=== PATIENT | female | born 1970 | race Caucasian/White ===

== ENCOUNTER 2017-09-13 00:57 | Inpatient (IN) | payer OTHER ==
[2017-09-13] MEDS ORDERED: ACETAMINOPHEN 325 MG TAB PO (02:00)
[2017-09-13] MEDS ORDERED: DOCUSATE SODIUM 100 MG CAP PO ×2 (02:00→12:00)
[2017-09-13] MEDS ORDERED: NACL 0.9% 3 ML SYG IV (02:00)
[2017-09-13] MEDS: HYDROmorphONE 0.5 MG/0.5 ML SYG IV ×3 (02:27→10:37)
[2017-09-13] MEDS: SOD CHLORIDE 0.9% 1,000 ML IV ×3 (02:27→15:59)
[2017-09-13] MEDS: TAMSULOSIN (SR) 0.4 MG CAP PO ×3 (02:27→20:30)
[2017-09-13 02:43] LABS: ADD MAN DIFF? NO
[2017-09-13 02:54] LABS: WHITE BLOOD COUNT 10.6 10^3/ul (4.8-10.8)
[2017-09-13 02:54] LABS: BASOPHIL # 0.1 10^3/ul (0.0-0.1); EOSINOPHILS # 0.5 10^3/ul (0.0-0.5); EOSINOPHILS % 4.3 % (0.0-7.0); HEMATOCRIT 37.3 % (37.0-47.0); HEMOGLOBIN 12.2 g/dl (12.0-16.0); LYMPHOCYTES # 4.9 10^3/ul (0.8-2.9); LYMPHOCYTES % 46.1 % (15.0-51.0); MEAN CORPUSCULAR HEMOGLOBIN 32.7 pg (29.0-33.0); MEAN CORPUSCULAR HGB CONC 32.7 g/dl (32.0-37.0); MEAN PLATELET VOLUME 9.4 fl (7.4-10.4); MONOCYTE # 0.9 10^3/ul (0.3-0.9); MONOCYTES % 8.3 % (0.0-11.0); NEUTROPHIL # 4.2 10^3/ul (1.6-7.5); PLATELET COUNT 445 10^3/UL (140-415); RED BLOOD COUNT 3.73 10^6/ul (4.20-5.40); RED CELL DISTRIBUTION WIDTH 15.6 % (11.5-14.5)
[2017-09-13 03:08] LABS: ALANINE AMINOTRANSFERASE 21 IU/L (13-69); ALBUMIN 3.5 g/dl (3.3-4.9); ALBUMIN/GLOBULIN RATIO 1.12; ALKALINE PHOSPHATASE 89 IU/L (42-121); ANION GAP 11 (8-16); ASPARTATE AMINO TRANSFERASE 35 IU/L (15-46); BILIRUBIN,INDIRECT 0.3 mg/dl (0-1.1); BILIRUBIN,TOTAL 0.3 mg/dl (0.2-1.3); BLOOD UREA NITROGEN 12 mg/dl (7-20); CALCIUM 8.6 mg/dl (8.4-10.2); CARBON DIOXIDE 20 mmol/L (21-31); CHLORIDE 113 mmol/L (97-110); GLUCOSE 74 mg/dl (70-220); POTASSIUM 4.6 mmol/L (3.5-5.1); SODIUM 139 mmol/L (135-144); TOTAL PROTEIN 6.6 g/dl (6.1-8.1)
[2017-09-13 04:37] LABS: MAGNESIUM 1.8 mg/dl (1.7-2.5)
[2017-09-13] MEDS: CEFTRIAXONE 2 GM/50 ML (PMX) 50 ML IVPB (05:17)
[2017-09-13] MEDS: DIPHENHYDRAMINE 25 MG CAP PO (06:49)
[2017-09-13 06:54] LABS: FREE T4 (FREE THYROXINE) 1.03 ng/dl (0.64-1.79)
[2017-09-13 06:55] LABS: ADD UMIC YES; UR ASCORBIC ACID NEGATIVE (NEGATIVE); UR BILIRUBIN (Dip) NEGATIVE (NEGATIVE); UR BLOOD (Dip) NEGATIVE (NEGATIVE); UR CLARITY CLEAR (CLEAR); UR COLOR YELLOW (YELLOW); UR GLUCOSE (Dip) NEGATIVE (NEGATIVE); UR KETONES (Dip) NEGATIVE (NEGATIVE); UR LEUKOCYTE ESTERASE (Dip) TRACE Leu/ul (NEGATIVE); UR NITRITE (Dip) NEGATIVE (NEGATIVE); UR RBC 1 /HPF (0-5); UR SPECIFIC GRAVITY (Dip) 1.011 (1.003-1.030); UR TOTAL PROTEIN (Dip) NEGATIVE (NEGATIVE); UR UROBILINOGEN (Dip) NEGATIVE (NEGATIVE); UR WBC 21 /HPF (0-5)
[2017-09-13 06:55] LABS: FREE T3 4.42 pg/ml (2.77-5.27)
[2017-09-13] MEDS: KETOROLAC 30 MG INJ IV (12:02)
[2017-09-13] MEDS: HYDROmorphONE 1 MG/ML SYG IV ×2 (15:59→20:30)
[2017-09-13] MEDS: ONDANSETRON 4 MG INJ IV (16:02)
[2017-09-13] MEDS: OXYCODONE/ACETAMINOPHEN (5/325) TAB PO (18:38)
[2017-09-13] MEDS: traZODone 100 MG TAB PO (21:14)
[2017-09-13] MEDS: DULOXETINE 20 MG CAP DR PO (22:00)
[2017-09-14] MEDS: DULOXETINE 20 MG CAP DR PO ×2 (01:29→21:03)
[2017-09-14] MEDS: HYDROmorphONE 1 MG/ML SYG IV ×5 (01:29→21:03)
[2017-09-14] MEDS: SOD CHLORIDE 0.9% 1,000 ML IV ×4 (03:19→21:04)
[2017-09-14] MEDS: CEFTRIAXONE 2 GM/50 ML (PMX) 50 ML IVPB (04:55)
[2017-09-14] MEDS: DOCUSATE SODIUM 250 MG CAP PO (04:57)
[2017-09-14] MEDS: BISACODYL (EC) 5 MG TAB PO (04:58)
[2017-09-14 05:30] LABS: ADD MAN DIFF? NO
[2017-09-14 05:34] LABS: BASOPHIL # 0.1 10^3/ul (0.0-0.1); BASOPHILS % 1.3 % (0.0-2.0); EOSINOPHILS # 0.3 10^3/ul (0.0-0.5); EOSINOPHILS % 3.8 % (0.0-7.0); HEMATOCRIT 33.4 % (37.0-47.0); LYMPHOCYTES # 2.9 10^3/ul (0.8-2.9); LYMPHOCYTES % 34.3 % (15.0-51.0); MEAN CORPUSCULAR HEMOGLOBIN 32.5 pg (29.0-33.0); MEAN CORPUSCULAR HGB CONC 32.9 g/dl (32.0-37.0); MEAN CORPUSCULAR VOLUME 98.8 fl (82.0-101.0); MEAN PLATELET VOLUME 9.5 fl (7.4-10.4); MONOCYTE # 0.6 10^3/ul (0.3-0.9); MONOCYTES % 7.7 % (0.0-11.0); NEUTROPHIL # 4.4 10^3/ul (1.6-7.5); NEUTROPHILS % 52.7 % (39.0-77.0); PLATELET COUNT 319 10^3/UL (140-415); RED BLOOD COUNT 3.38 10^6/ul (4.20-5.40); RED CELL DISTRIBUTION WIDTH 15.7 % (11.5-14.5)
[2017-09-14 05:34] LABS: WHITE BLOOD COUNT 8.4 10^3/ul (4.8-10.8)
[2017-09-14 06:17] LABS: ANION GAP 8 (8-16); BLOOD UREA NITROGEN 12 mg/dl (7-20); CALCIUM 8.5 mg/dl (8.4-10.2); CARBON DIOXIDE 22 mmol/L (21-31); CHLORIDE 112 mmol/L (97-110); CREATININE 0.82 mg/dl (0.44-1.00); GLUCOSE 101 mg/dl (70-220); POTASSIUM 4.3 mmol/L (3.5-5.1); SODIUM 138 mmol/L (135-144)
[2017-09-14 06:46] LABS: MAGNESIUM 1.6 mg/dl (1.7-2.5)
[2017-09-14] MEDS: SERTRALINE 50 MG TAB PO (08:13)
[2017-09-14] MEDS: ARIPIPRAZOLE 5 MG TAB PO (08:13)
[2017-09-14] MEDS: ONDANSETRON 4 MG INJ IV (08:13)
[2017-09-14] MEDS: TAMSULOSIN (SR) 0.4 MG CAP PO (08:13)
[2017-09-14] MEDS: LORAZEPAM 2 MG INJ IV (15:50)
[2017-09-14] MEDS ORDERED: IOHEXOL 300MG/ML 30 ML BTL (17:15)
[2017-09-14] MEDS ORDERED: CEFAZOLIN 1 GM INJ (17:22)
[2017-09-14] MEDS ORDERED: PROPOFOL 20 ML (17:22)
[2017-09-14] MEDS ORDERED: MIDAZOLAM 1 MG/ML 2 ML INJ (17:22)
[2017-09-14] MEDS ORDERED: ROCURONIUM 50 MG INJ (17:22)
[2017-09-14] MEDS ORDERED: DEXAMETHASONE 4 MG/ML 1 ML INJ (18:34)
[2017-09-14] MEDS ORDERED: ONDANSETRON 4 MG INJ (18:34)
[2017-09-14] MEDS ORDERED: METOCLOPRAMIDE 10 MG INJ (18:34)
[2017-09-14] MEDS ORDERED: KETOROLAC 30 MG INJ (18:34)
[2017-09-14] MEDS ORDERED: HYDROmorphONE 1 MG/5 ML IV SYRINGE IV ×2 (19:00)
[2017-09-14] MEDS ORDERED: ONDANSETRON 4 MG INJ IV (19:00)
[2017-09-14] MEDS ORDERED: hydrALAzine 20 MG INJ IV (19:00)
[2017-09-14] MEDS ORDERED: KETOROLAC 30 MG INJ IV (19:00)
[2017-09-14] MEDS ORDERED: EPHEDrine SULFATE 50 MG/5 ML SYG IV (19:00)
[2017-09-14] MEDS ORDERED: OXYCODONE/ACETAMINOPHEN (5/325) TAB PO ×2 (19:00)
[2017-09-14] MEDS ORDERED: FENTAnyl 50 MCG/ML VIAL IV ×3 (19:00)
[2017-09-14] MEDS ORDERED: LABETALOL HCL 20MG INJ IV (19:00)
[2017-09-14] MEDS: traZODone 100 MG TAB PO (21:03)
[2017-09-14] MEDS: MAGNESIUM SULFATE 1 GM/D5W 100 ML IVPB (21:04)
[2017-09-14] MEDS: OXYCODONE/ACETAMINOPHEN (5/325) TAB PO (22:16)
[2017-09-15] MEDS: HYDROmorphONE 1 MG/ML SYG IV ×3 (01:46→09:53)
[2017-09-15] MEDS: SOD CHLORIDE 0.9% 1,000 ML IV (03:40)
[2017-09-15] MEDS: CEFTRIAXONE 2 GM/50 ML (PMX) 50 ML IVPB (05:29)
[2017-09-15 06:10] LABS: ADD MAN DIFF? NO
[2017-09-15 06:13] LABS: WHITE BLOOD COUNT 8.6 10^3/ul (4.8-10.8)
[2017-09-15 06:13] LABS: BASOPHILS % 0.5 % (0.0-2.0); HEMATOCRIT 34.9 % (37.0-47.0); HEMOGLOBIN 11.8 g/dl (12.0-16.0); LYMPHOCYTES # 1.2 10^3/ul (0.8-2.9); LYMPHOCYTES % 13.6 % (15.0-51.0); MEAN CORPUSCULAR HEMOGLOBIN 32.5 pg (29.0-33.0); MEAN CORPUSCULAR HGB CONC 33.8 g/dl (32.0-37.0); MEAN CORPUSCULAR VOLUME 96.1 fl (82.0-101.0); MONOCYTE # 0.2 10^3/ul (0.3-0.9); MONOCYTES % 1.9 % (0.0-11.0); NEUTROPHIL # 7.2 10^3/ul (1.6-7.5); NEUTROPHILS % 83.8 % (39.0-77.0); PLATELET COUNT 395 10^3/UL (140-415); RED BLOOD COUNT 3.63 10^6/ul (4.20-5.40); RED CELL DISTRIBUTION WIDTH 14.3 % (11.5-14.5)
[2017-09-15 06:55] LABS: MAGNESIUM 1.7 mg/dl (1.7-2.5)
[2017-09-15 07:04] LABS: ANION GAP 11 (8-16); BLOOD UREA NITROGEN 11 mg/dl (7-20); CALCIUM 8.9 mg/dl (8.4-10.2); CARBON DIOXIDE 21 mmol/L (21-31); CHLORIDE 113 mmol/L (97-110); CREATININE 0.66 mg/dl (0.44-1.00); GLUCOSE 116 mg/dl (70-220); POTASSIUM 4.7 mmol/L (3.5-5.1); SODIUM 140 mmol/L (135-144)
[2017-09-15] MEDS: OXYCODONE/ACETAMINOPHEN (5/325) TAB PO (07:58)
[2017-09-15] MEDS: ARIPIPRAZOLE 5 MG TAB PO (08:20)
[2017-09-15] MEDS: SERTRALINE 50 MG TAB PO (08:21)
== END 2017-09-15 12:50 | disposition home or self-care (01) | DRG 669 ==
LOC: MS2 00:57
PROC: 0TC78ZZ Extirpation of Matter from Left Ureter, Via Natural or Artificial Opening Endoscopic (ICD-10-PCS; principal; 2017-09-14 17:30)
PROC: 0T778DZ Dilation of Left Ureter with Intraluminal Device, Via Natural or Artificial Opening Endoscopic (ICD-10-PCS; 2017-09-14 17:30)
DX: N13.6 Pyonephrosis (principal); D69.3 Immune thrombocytopenic purpura; M87.9 Osteonecrosis, unspecified; E06.3 Autoimmune thyroiditis; Z79.52 Long term (current) use of systemic steroids; Z96.641 Presence of right artificial hip joint; Z90.81 Acquired absence of spleen; Z90.49 Acquired absence of other specified parts of digestive tract; F17.210 Nicotine dependence, cigarettes, uncomplicated
CPT/HCPCS: 72170; 74018; 74430; 76775; 80048; 80053; 81001; 83036; 83735; 84439; 84443; 84481; 85025; 87086; 88300